=== PATIENT | male | born 1965 | race Caucasian/White ===

== ENCOUNTER 2019-07-19 15:04 | Outpatient (CLI) | payer BC ==
--- NOTE | 2019-07-20 10:10 | XRAY Report ---
Reason: L FOOT PAIN SWELLING Procedure Date: 07/19/2019 Accession Number: [id number] / [id number] Procedure: XR - Foot 3 View LT CPT Code: Final Report FULL RESULT: EXAM: LEFT FOOT RADIOGRAPHY EXAM DATE: 07/19/2019 03:31 PM HISTORY: L FOOT PAIN SWELLING COMPARISON: None. TECHNIQUE: AP, lateral and oblique, 3 views . FINDINGS: Mild degenerative arthritic changes noted at the fifth toe, especially the PIP joint. Small soft tissue calcification seen adjacent to the plantar aspect of the second MTP joint laterally. This is nonspecific. It is likely chronic dystrophic calcification. Moderate degenerative arthritis evident at the first and second metacuneiform articulations. There may be an os intermetatarseum. Dorsal spurring noted at the navicular cuneiform articulations. There may be mild pes planus although this is not a weightbearing study. Moderate dorsal calcaneal spur noted. Mild plantar calcaneal spur noted. Unremarkable soft tissues. IMPRESSION: Degenerative arthritic changes and calcaneal spurring. Possible pes planus. Minimal, probably dystrophic calcification, adjacent to the second MTP joint. [facility]
== END 2019-07-19 15:05 | disposition home or self-care (01) ==
LOC: DI 15:04
PROVIDERS: ATTEND Physician Assistant Medical
DX: M19.072 Primary osteoarthritis, left ankle and foot (principal); M77.32 Calcaneal spur, left foot